=== PATIENT | male | born 1980 | race Caucasian/White ===

== ENCOUNTER 2017-06-25 11:34 | Emergency (ER) | payer OTHER ==
--- NOTE | 2017-06-25 12:43 | ED ---
Psych HPI <Christian Mtz - Last Filed: 06/25/17 19:36> - General Source: patient, RN notes reviewed, old records reviewed Mode of arrival: ambulatory <Ashley Scott - Last Filed: 06/26/17 18:29> - General Chief Complaint: Psychiatric Symptoms Stated Complaint: mental health Time Seen by Provider: 06/25/17 12:03 - History of Present Illness Initial Comments: Is a 36-year-old male presenting to the emergency Department chief complaint of manic episodes. Patient's care with his . Patient reports that since last he stopped drinking alcohol. He reports that since that he's been very happy. Patient does have a history of bipolar. Patient has not any medications for 2 years. Patient's states he has not slept in 45 minutes, and his been very hyperactive. He reports his bleeding because he is up and eating. Patient is upset that he is here. He reports "that everybody seems to think that he is crazy". Patient's states that he has been making poor decisions. He admits to her that he has been not watching the children and has been drunk in the past while watching the children. Patient denies any recent fever, chills, shortness of breath, chest pain, back pain, abdominal pain, nausea vomiting, numbness or tingling, dysuria or hematuria, constipation or diarrhea, headaches or visual changes, or any other current symptoms. ( Ashley Scott) - Related Data Home Medications Medication Instructions Recorded Confirmed No Known Home Medications [No 06/25/17 06/25/17 Known Home Medications] Allergies Allergy/AdvReac Type Severity Reaction Status Date / Time codeine Allergy Wheezing Verified 06/25/17 13:51 Review of Systems ROS Other: All systems not noted in ROS Statement are negative. <Christian Mtz - Last Filed: 06/25/17 19:36> ROS Other: All systems not noted in ROS Statement are negative. <Ashley Scott - Last Filed: 06/26/17 18:29> ROS Statement: Those systems with pertinent positive or pertinent negative responses have been documented in the HPI. Past Medical History Past Medical History: No Reported History History of Any Multi-Drug Resistant Organisms: None Reported Past Surgical History: No Surgical Hx Reported Past Psychological History: Bipolar Smoking Status: Current every day smoker Past Alcohol Use History: Daily Past Drug Use History: Marijuana <Ashley Scott - Last Filed: 06/26/17 18:29> General Exam <Christian Mtz - Last Filed: 06/25/17 19:36> Limitations: no limitations General appearance: alert, in no apparent distress Head exam: Present: atraumatic, normocephalic, normal inspection Eye exam: Present: normal appearance, PERRL, EOMI. Absent: scleral icterus, conjunctival injection, periorbital swelling ENT exam: Present: normal exam, mucous membranes moist Neck exam: Present: normal inspection. Absent: tenderness, meningismus, lymphadenopathy Respiratory exam: Present: normal lung sounds bilaterally. Absent: respiratory distress, wheezes, rales, rhonchi, stridor Cardiovascular Exam: Present: regular rate, normal rhythm, normal heart sounds. Absent: systolic murmur, diastolic murmur, rubs, gallop, clicks GI/Abdominal exam: Present: soft, normal bowel sounds. Absent: distended, tenderness, guarding, rebound, rigid Extremities exam: Present: normal inspection, full ROM, normal capillary refill. Absent: tenderness, pedal edema, joint swelling, calf tenderness Back exam: Present: normal inspection Neurological exam: Present: alert, oriented X3, CN II-XII intact Psychiatric exam: Present: agitated, manic (Patient is manic and having loose association of ideas. Patient is talking about children's toys, and then later talked about smoking marijuana.). Absent: normal affect, normal mood Skin exam: Present: warm, dry, intact, normal color. Absent: rash <Ashley Scott - Last Filed: 06/26/17 18:29> - General Exam Comments Initial Comments: This is a 36-year-old male. Patient does review to be a manic state. Patient is pacing around the room. He is increasingly agitated. (Ashley Scott) Course <Christian Mtz - Last Filed: 06/25/17 19:36> <Ashley Scott - Last Filed: 06/26/17 18:29> Vital Signs 06/25/17 06/25/17 06/26/17 11:35 22:41 05:06 Temperature 99.5 F 97.8 F 98.1 F Pulse Rate 116 H 70 80 Respiratory 20 18 16 Rate Blood Pressure 181/103 119/73 109/77 O2 Sat by Pulse 99 98 99 Oximetry 06/26/17 14:30 Temperature 98.2 F Pulse Rate 66 Respiratory 20 Rate Blood Pressure 137/82 O2 Sat by Pulse 97 Oximetry - Reevaluation(s) Reevaluation #1: 06/25/17 16:35 is becoming increasingly agitated. Patient is making threats about the bid writer of this note, threatening to joshua because I touch his knee during the exam. During exam I did rest my hand on his lower leg when I was trying to talk to him for less than 2 seconds. Patient then became uncomfortable and told me back way and I did so. Coming increasingly agitated and upset. He is displaying manic tendencies, stating that he has all the money and the world to joshua this hospital and the bid writer. He also makes comments about physical appearance of staff. (Aslhey Scott) Reevaluation #2: 06/25/17 17:43 Patient was evaluated by EPS. Patient will be admitted. Dr. Mtz will fill out a petition. Patient (Ashley Scott) Reevaluation #3: 06/25/17 19:41 Patient went to the bathroom this time was increasingly agitated. Patient then punched a wall and hit his face. Patient 5 mg of Valium. (Ashley Scott) Reevaluation #4: 06/25/17 20:17 At this time and I am informed that patient's insurance will not be covering this hospital. He will need to stay here overnight and be transferred to a different hospital for psychiatric care. Patient will be were sitting in the emergency Department for the remainder of the evening. (Ashley Scott) Reevaluation #5: 06/26/17 18:28 During the EC states they patient was continually distribute manic behavior, was talking rapidly, and pacing frequently. Patient did not have any violent outbursts. Patient does not receive any sedative medications. (Ashley Scott) Medical Decision Making <Christian Mtz - Last Filed: 06/25/17 19:36> - Lab Data Result diagrams: 06/25/17 20:40 06/25/17 20:40 <Ashley Scott - Last Filed: 06/26/17 18:29> - Medical Decision Making Patient reevaluated by myself, Dr. Mtz. Patient was seen by mental health services who does want patient to be admitted. Patient is manic. Patient was agitated earlier and needed to be provided medication for patient and staff safety. Positive clinical certificate completed. (Christian Mtz) This is a 36-year-old male presenting to emergency department with his with chief complaint of manic episode. Patient has been drinking alcohol regularly for the past few years, and decided to quit on . Patient reports that he wants his bike to totally clean. Patient's states that since he stopped drinking alcohol use became increasingly manic and agitated. He has not slept for more than 45 minutes. He saw last week is not eating. Patient denies any suicidal ideation. During EC stay he did have a prolonged stay until seen by EPS nurse. During the stay he became increasingly agitated. Patient made verbal threats to the staff. Patient was informed that he was having some manic episodes intermittently like the opinion of the right ear. Patient was evaluated by EPS. He will be admitted, with a petition from Dr. Mtz. (Ashley Scott) - Lab Data Lab Results 06/25/17 06/25/17 06/25/17 Range/Units 15:16 20:40 20:40 WBC 12.2 H (3.8-10.6) k/uL RBC 4.83 (4.30-5.90) m/uL Hgb 16.1 (13.0-17.5) gm/dL Hct 47.1 (39.0-53.0) % MCV 97.6 (80.0-100.0) fL MCH 33.2 (25.0-35.0) pg MCHC 34.1 (31.0-37.0) g/dL RDW 14.4 (11.5-15.5) % Plt Count 195 (150-450) k/uL Neutrophils % 73 % Lymphocytes % 19 % Monocytes % 5 % Eosinophils % 1 % Basophils % 1 % Neutrophils # 8.9 H (1.3-7.7) k/uL Lymphocytes # 2.3 (1.0-4.8) k/uL Monocytes # 0.6 (0-1.0) k/uL Eosinophils # 0.1 (0-0.7) k/uL Basophils # 0.1 (0-0.2) k/uL Sodium 131 L (137-145) mmol/L Potassium 4.2 (3.5-5.1) mmol/L Chloride 98 (98-107) mmol/L Carbon Dioxide 27 (22-30) mmol/L Anion Gap 6 mmol/L BUN 13 (9-20) mg/dL Creatinine 0.88 (0.66-1.25) mg/dL Est GFR (MDRD) Af Amer >60 (>60 ml/min/1.73 sqM) Est GFR (MDRD) Non-Af >60 (>60 ml/min/1.73 sqM) Glucose 89 (74-99) mg/dL Calcium 9.1 (8.4-10.2) mg/dL Total Bilirubin 0.7 (0.2-1.3) mg/dL AST 58 (17-59) U/L ALT 53 (21-72) U/L Alkaline Phosphatase 45 (38-126) U/L Total Protein 6.3 (6.3-8.2) g/dL Albumin 4.0 (3.5-5.0) g/dL Urine Opiates Screen Not Detected (NotDetected) Ur Oxycodone Screen Not Detected (NotDetected) Urine Methadone Screen Not Detected (NotDetected) Ur Propoxyphene Screen Not Detected (NotDetected) Ur Barbiturates Screen Not Detected (NotDetected) U Tricyclic Antidepress Not Detected (NotDetected) Ur Phencyclidine Scrn Not Detected (NotDetected) Ur Amphetamines Screen Not Detected (NotDetected) U Methamphetamines Scrn Not Detected (NotDetected) U Benzodiazepines Scrn Not Detected (NotDetected) Urine Cocaine Screen Not Detected (NotDetected) U Marijuana (THC) Screen Detected H (NotDetected) Disposition <Christian Mtz - Last Filed: 06/25/17 19:36> Time of Disposition: 18:29 - Out of Hospital Transfer - Req. Specs Out of Hospital Transfer - Requested Specifics: Other Non-Acute ([place] [place]) <Ashley Scott - Last Filed: 06/26/17 18:29> Clinical Impression: Manic behavior, Corie (monopolar) single episode or unspecified, Acute psychosis Disposition: TRANSFER TO PSYCH HOSP/UNIT Condition: Stable Referrals: None,Stated [Primary Care Provider] - 1-2 days
[2017-06-25] MEDS ORDERED: ZIPRASIDONE 20 MG VIAL IM STA (17:26)
[2017-06-25] MEDS ORDERED: LORazepam 2 MG/ML SYRINGE IM STA (17:26)
[2017-06-25] MEDS ORDERED: HALOPERIDOL DECANOATE 50 MG/ML 1 ML VIAL IM STA (17:28)
[2017-06-25] MEDS ORDERED: DIAZEPAM 5 MG/ML 2 ML SYRINGE IM ONE (19:40)
[2017-06-25 20:50] LABS: Basophils # (A) 0.1 k/uL (0-0.2); Basophils % (A) 1 %; CH 34.2; CHCM 35.2; Eosinophils # (A) 0.1 k/uL (0-0.7); Eosinophils % (A) 1 %; HCT 47.1 % (39.0-53.0); HDW 2.41; HGB 16.1 gm/dL (13.0-17.5); Luc # (Auto) 0.19; Luc % (Auto) 2; Lymphocytes # (A) 2.3 k/uL (1.0-4.8); Lymphocytes % (A) 19 %; MCH 33.2 pg (25.0-35.0); MCHC 34.1 g/dL (31.0-37.0); MCV 97.6 fL (80.0-100.0); Mean Platelet Volume 7.8; Monocytes # (A) 0.6 k/uL (0-1.0); Monocytes % (A) 5 %; Neutrophils # (A) 8.9 k/uL (1.3-7.7); Neutrophils % (A) 73 %; RBC 4.83 m/uL (4.30-5.90); RDW 14.4 % (11.5-15.5); WBC 12.2 k/uL (3.8-10.6); WBC (Perox) 12.04
[2017-06-25 21:12] LABS: ALT 53 U/L (21-72); AST 58 U/L (17-59); Alkaline Phosphatase 45 U/L (38-126); Anion Gap 6 mmol/L; Blood Urea Nitrogen 13 mg/dL (9-20); Calcium 9.1 mg/dL (8.4-10.2); Carbon Dioxide 27 mmol/L (22-30); Chloride 98 mmol/L (98-107); Glucose 89 mg/dL (74-99); Non-African American GFR(MDRD) >60 (>60 ml/min/1.73 sqM); Potassium 4.2 mmol/L (3.5-5.1); Sodium 131 mmol/L (137-145); Total Bilirubin 0.7 mg/dL (0.2-1.3); Total Protein 6.3 g/dL (6.3-8.2)
[2017-06-26] MEDS ORDERED: NICOTINE 21MG/24HR PATCH TRANSDERM STA (10:17)
[2017-06-26] MEDS: NICOTINE POLACRILEX 2 MG GUM BUCCAL PRN ×2 (10:57→15:23)
[2017-06-26 18:47] VITALS: BP 171/83; PULSE 79; RESP 18; TEMP 98
== END 2017-06-26 19:32 ==
LOC: EC 11:34
DX: F23 Brief psychotic disorder (principal); F30.2 Manic episode, severe with psychotic symptoms; F17.200 Nicotine dependence, unspecified, uncomplicated; Z88.5 Allergy status to narcotic agent
CPT/HCPCS: 82075; 36415; 80053; 85025; 80306; 99285; 96372 ×3; J2060; J3360; J1631

== ENCOUNTER 2017-07-21 11:45 | Emergency (ER) | payer OTHER ==
[2017-07-21 11:59] VITALS: BP 141/95; PULSE 114; RESP 20; TEMP 99.7
[2017-07-21 13:27] LABS: Acetaminophen <10.0 ug/mL; Salicylate <1.0 mg/dL
--- NOTE | 2017-07-21 15:46 | ED ---
General Adult HPI - General Chief complaint: Psychiatric Symptoms Stated complaint: PETITIONED, MENTAL HEALTH Time Seen by Provider: 07/21/17 11:56 Source: patient, RN notes reviewed, old records reviewed Mode of arrival: ambulatory Limitations: no limitations - History of Present Illness Initial comments: Chief complaint history of present illness 36-year-old male brought emergency room for evaluation. The patient has a petition filed by his significant other. Patient is acting in a very manic way. He states whenever his throat on the petition was told to her by his new X best friend who is no alcoholic he just wants to get him in trouble. Patient spent a week and [facility] last month which she reported was uncomfortable because he had take medication for alleviation of been there. He states many years ago his family hadn't committed and since then has been labeled as bipolar patient. He does admit to being an alcoholic. - Related Data Home Medications Medication Instructions Recorded Confirmed No Known Home Medications [No 06/25/17 07/21/17 Known Home Medications] Allergies Allergy/AdvReac Type Severity Reaction Status Date / Time codeine Allergy Wheezing Verified 07/21/17 12:39 Review of Systems ROS Statement: Those systems with pertinent positive or pertinent negative responses have been documented in the HPI. Review of systems the patient is clinically manic. Denies drinking today we did several days ago. Not taking any medications prescribed by a psychiatrist. Denies any has psychiatric problems. Denying headache chest pain shortness breath GI/ problems denies suicidal thoughts. Past medical problems bipolar disorder. Alcoholism, marijuana abuse. Family history noncontributory. Patient does smoke marijuana. States he is an alcoholic. ROS Other: All systems not noted in ROS Statement are negative. Past Medical History Past Medical History: No Reported History History of Any Multi-Drug Resistant Organisms: None Reported Past Surgical History: No Surgical Hx Reported Past Psychological History: Bipolar Smoking Status: Current every day smoker Past Alcohol Use History: Daily Past Drug Use History: Marijuana General Exam - General Exam Comments Initial Comments: General: The patient is awake and alert, brought here under petition for evaluation by psychiatry. The patient is extremely manic. Admits that he is not alcoholic. Upset that he is being forced to be reevaluated. He actually spent time at [facility], one week proximally one month ago for the same condition and problems. Not taking medications as prescribed. Vital signs temp 99.7 pulse 114 respiratory rate 20 pulse ox 97% room air blood pressure 141/95 Eye: Pupils are equal, round and reactive to light, extra-ocular movements are intact ; Ears, nose, mouth and throat: There are moist mucous membranes Neck: The neck is supple, Cardiovascular: Patient denies any chest pain or palpitations. Heart rate is mildly elevated 114. The patient is manic. Respiratory: Lungs are clear to auscultation, respirations are non-labored, breath sounds are equal. No wheezes, stridor, rales, or rhonchi. Gastrointestinal: Soft nontender no nausea no vomiting no diarrhea Back: No complaint of back pain. Musculoskeletal: Full range of motion upper and lower extremities without evidence of any discomfort no complaints of pain. Neurological: CN II-XII intact, There are no obvious motor or sensory deficits. Coordination appears grossly intact. Speech is normal. Skin: Skin is warm and dry and no rashes or lesions are noted. Psychiatric: History of bipolar disorder, extremely manic today. Denies being suicidal. Limitations: no limitations Course Vital Signs 07/21/17 11:55 Temperature 99.7 F H Pulse Rate 114 H Respiratory 20 Rate Blood Pressure 141/95 O2 Sat by Pulse 97 Oximetry Medical Decision Making - Medical Decision Making Negative for Tylenol or aspirin. Is positive for marijuana which the patient admits to. Patient was evaluated by the psychiatric nurse. She is currently discussing the circumstances with the psychiatrist on-call. I completed a certificate for admission for the patient with a diagnosis of alcoholism and bipolar manic episode. Arrangements had been made for the patient to go to the [facility]. Accepted by Dr. Cordero. - Lab Data Lab Results 07/21/17 07/21/17 Range/Units 12:45 13:06 Salicylates <1.0 mg/dL Urine Opiates Screen Not Detected (NotDetected) Ur Oxycodone Screen Not Detected (NotDetected) Urine Methadone Screen Not Detected (NotDetected) Ur Propoxyphene Screen Not Detected (NotDetected) Acetaminophen <10.0 ug/mL Ur Barbiturates Screen Not Detected (NotDetected) U Tricyclic Antidepress Not Detected (NotDetected) Ur Phencyclidine Scrn Not Detected (NotDetected) Ur Amphetamines Screen Not Detected (NotDetected) U Methamphetamines Scrn Not Detected (NotDetected) U Benzodiazepines Scrn Not Detected (NotDetected) Urine Cocaine Screen Not Detected (NotDetected) U Marijuana (THC) Screen Detected H (NotDetected) Disposition Clinical Impression: Bipolar affective, manic, severe Disposition: TRANSFER TO PSYCH HOSP/UNIT Condition: Serious Referrals: None,Stated [Primary Care Provider] - 1-2 days - Out of Hospital Transfer - Req. Specs Out of Hospital Transfer - Requested Specifics: Psychiatric Non-ICU (Transfer to [facility])
[2017-07-21] MEDS ORDERED: BISMUTH SUBSALICYLATE 4,192 MG/240 ML BOTTLE PO PRN (17:18)
== END 2017-07-21 17:10 ==
LOC: EC 11:45
DX: F31.9 Bipolar disorder, unspecified (principal); F17.200 Nicotine dependence, unspecified, uncomplicated; Z88.5 Allergy status to narcotic agent
CPT/HCPCS: 36415; 80306; 82075; 83520; 99285